=== PATIENT | female | born 1930 | race Caucasian/White ===

== ENCOUNTER → 2017-09-02 | Outpatient (CLI) | payer MEDICARE, MEDICAID ==
[~2017-09-02] MED LIST: ADV250 IH; ESCI20TA PO; ESOM40CA PO; GABA-529 PO; LOSA25TA21 PO; SIMV-260 PO; TIOT185 IH; TRAZ-147 PO
== END | disposition home or self-care (01) ==
LOC: RADPV 11:06
PROVIDERS: ATTEND Internal Medicine Cardiovascular Disease
DX: I08.0 Rheumatic disorders of both mitral and aortic valves (principal); I25.2 Old myocardial infarction
CPT/HCPCS: 93306